=== PATIENT | male | born 1975 | race Caucasian/White ===

== ENCOUNTER 2020-02-11 15:18 | Emergency (ER) | payer OTHER, SELFPAY ==
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
[2020-02-11 15:28] VITALS: BP 179/96; PULSE 77; RESP 20; TEMP 36.6; O2SAT 97
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
[2020-02-11] MEDS: IBUPROFEN 600 MG TABLET PO (17:14)
== END 2020-02-11 17:26 | disposition home or self-care (01) ==
PROVIDERS: Emergency Provider Emergency Medicine
DX: R51.9 Headache, unspecified (principal); S16.1XXA Strain of muscle, fascia and tendon at neck level, initial encounter; V43.52XA Car driver injured in collision with other type car in traffic accident, initial encounter
CPT/HCPCS: 70450; 71046; 72125; 99284; A9270

== ENCOUNTER 2020-11-20 11:11 | Emergency (ER) | payer OTHER, SELFPAY ==
[2020-11-20 11:20] VITALS: BP 155/92; PULSE 67; RESP 16; TEMP 36.2; O2SAT 96
--- NOTE | 2020-11-20 11:35 | ED.LOWEXIN ---
HPI - Extremity Injury (Lower) General Chief Complaint: Extremity Injury, Lower Stated Complaint: groin pain Time Seen by Provider: 11/20/20 11:35 Source: patient Mode of arrival: ambulatory Limitations: no limitations History of Present Illness HPI Narrative: Teddy James is a 25-year-old male with a prior history of HTN but not taking medication, who [facility] complaints of a pulled muscle in his inguinal area after running around with his kids on Friday evening. States on Friday that he was sore and iced and took some Aleve. He is walking trying to protect right inguinal area, shifting weight to the left Related Data Allergies Allergy/AdvReac Type Severity Reaction Status Date / Time Penicillins Allergy Unknown Other Verified 11/20/20 11:27 Review of Systems Review of Systems: Narrative: CONSTITUTIONAL: Denies fever, chills, sweats. EYES: Denies visual changes, redness, discharge. ENT: Denies rhinorrhea, congestion, sore throat, otalgia. CARDIOVASCULAR: Denies chest pain, palpitations, edema. RESPIRATORY: Denies dyspnea, wheezing, cough GASTROINTESTINAL: Denies abdominal pain, nausea, vomiting, diarrhea. GENITOURINARY: Denies dysuria, hematuria, abnormal discharge SKIN: Denies rash or itching. NEUROLOGIC: Denies numbness, or focal weakness. PSYCHIATRIC: Denies anxiety or depression. 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 HEAD: normocephalic, atraumatic. EYES: Sclera clear/white. Vision is grossly intact. EARS: External ears normal, Hearing grossly intact. NOSE: External nose normal without nasal discharge, nares without redness, no rhinorrhea. THROAT: Mucous membranes moist, NECK: Neck supple, CARDIOVASCULAR: Regular rate and rhythm without murmurs, gallops, or rubs. RESPIRATORY: Clear to auscultation. Breath sounds equal bilaterally. No wheezes, rales, or rhonchi. GASTROINTESTINAL: Abdomen soft, SKIN: warm, intact with no suspicious lesions or rash, good texture and turgor. NEURO: awake, alert, and oriented to person, place and time. There were no obvious focal neurologic abnormalities. Steady gait EXTREMITIES: Normal range of motion. Nonreproducible pain in right groin patient states has tightness in groin area with adduction of leg to side or posteriorly BACK: Nontender without deformity Course Course Emergency Course: Patient comes here with inguinal muscle pull Start Flexeril and high-dose ibuprofen Discussed with patient getting back into primary care for high blood pressure Vital Signs Vital signs: Vital Signs Temperature 97.2 F L 11/20/20 11:20 Pulse Rate 67 11/20/20 11:20 Respiratory Rate 16 11/20/20 11:20 Blood Pressure 155/92 H 11/20/20 11:20 Pulse Oximetry 96 11/20/20 11:20 Temperature 97.2 F L 11/20/20 11:20 Pulse Rate 73 11/20/20 11:45 Respiratory Rate 16 11/20/20 11:20 Blood Pressure 150/105 H 11/20/20 11:45 Pulse Oximetry 96 11/20/20 11:20 MDM - Extremity Injury (Lower) Differential Diagnosis Differential diagnosis: Likely ankle sprain and strain and other (Muscle pull versus testicular pull versus muscle tear) Critical Care Time Critical Care Time Critical Care Time: No Discharge Plan Discharge Clinical Impression: Inguinal pain Qualifiers: Laterality: right Qualified Code(s): R10.31 - Right lower quadrant pain Patient Disposition: Home, Self-Care Condition: Stable Instructions: Kyrie
[2020-11-20 11:45] VITALS: BP 150/105; PULSE 73
== END 2020-11-20 11:56 | disposition home or self-care (01) ==
PROVIDERS: Emergency Provider Nurse Practitioner
DX: R10.31 Right lower quadrant pain (principal); I10 Essential (primary) hypertension
CPT/HCPCS: 99213; G0463